=== PATIENT | male | born 2000 | race African-American/Black ===

== ENCOUNTER 2022-04-07 17:26 | Emergency (ER) | payer OTHER, SELFPAY ==
[2022-04-07 17:35] VITALS: BP 126/78; PULSE 78; RESP 20; TEMP 36.7; O2SAT 98
--- NOTE | 2022-04-07 17:38 | DI.US.S_ITS ---
PROCEDURE: US SCROTUM INDICATIONS: LEFT TESTICULAR PAIN X 1 WEEK TECHNIQUE: Real-time scanning was performed of the scrotum and testicles, with image documentation. Color and pulse Doppler interrogation was performed of both testicles. COMPARISON: None. FINDINGS: Right: Testicle is normal in size at 4.6 x 2.0 x 3.3 cm, and homogenous in echotexture. Epididymis is normal in overall size and morphology. No hydrocele or varicoceles. Overlying scrotal skin is normal in thickness. Left: Testicle is normal in size at 4.5 x 2.0 x 3.1 cm, and homogeneous in echotexture. Epididymis is normal in overall size and morphology. No hydrocele or varicoceles. Overlying scrotal skin is normal in thickness. Doppler: Color and pulse Doppler demonstrate normal and symmetric arterial flow in both testicles. IMPRESSION: Unremarkable exam. Dictated by: Kimberly Escalona M.D. on 04/07/2022 at 19:06 Approved by: Kimberly Escalona M.D. on 04/07/2022 at 19:06
[2022-04-07 18:03] LABS: Appearance Urine UA CLEAR; Bilirubin Urine UA NEGATIVE (NEGATIVE); Color Urine UA YELLOW; Glucose Urine UA NEGATIVE (Negative); Ketones Urine UA 1+ (NEGATIVE); Leukocyte Esterase Urine UA NEGATIVE (NEGATIVE); Nitrite Urine UA NEGATIVE (Negative); Occult Blood Urine UA NEGATIVE (Negative); Protein Urine UA NEGATIVE (Negative); Specific Gravity Urine UA <=1.005 (1.000-1.035); Urobilinogen Urine UA 0.2 E.U./dL (0.2)
[2022-04-07 18:16] LABS: Bacteria Urine None Seen; Culture Indicated Urine Cult Not Indicated; RBC Urine None Seen (0-5/HPF); Squamous Epithelial Cell Urine 0-1 /HPF (0-5/HPF); WBC Urine 0-1/HPF (0-5/HPF)
[2022-04-07 19:24] LABS: Urine N gonorrhoeae NOT DETECTED
[2022-04-07 19:40] LABS: Urine Chlamydia NOT DETECTED
[2022-04-07 20:07] VITALS: BP 122/74; PULSE 75; O2SAT 99
--- NOTE | 2022-04-07 20:08 | ED.MALEGU ---
HPI - Male Genitourinary <EZIO Jenkins - Last Filed: 04/07/22 20:17> General Chief complaint: Urogenital-Male Stated complaint: testicular pain Time Seen by Provider: 04/07/22 17:40 Source: patient Mode of arrival: Ambulatory History of Present Illness HPI Narrative: This is a 21-year-old male who presents To the emergency department for left testicle pain which has been present often on for approximately six months. Patient endorses painful ejaculation, intermittently painful urination,, tenderness behind his testicle in a rope like structure. Patient denies any fever, nausea vomiting, changes to his urination, states that he has had an ultrasound in the past for this and been tested for gonorrhea and chlamydia and it was all negative at that time for abnormality. Patient states that he is in the [place] and he is being discharged and out of the [place] tomorrow. Patient denies any penile discharge, denies any chills, denies any painful bowel movements or blood in his stool. Related Data Previous Rx's Medication Instructions Recorded doxycycline hyclate 100 mg tablet 100 mg PO BID 10 Days #20 tab 04/07/22 Review of Systems <EZIO Jenkins - Last Filed: 04/07/22 20:17> Review of Systems Narrative: General: denies fever, chills, malaise, sweats, fatigue Head/Neck: denies headache, neck pain, dizziness Eyes: denies visual changes, eye pain Cardio: denies chest pain, palpitations, edema Respiratory: denies dyspnea, cough, orthopnea GI: denies abdominal pain, nausea, vomiting, or diarrhea : denies dysuria, hematuria, urinary retention, frequency or incontinence, endorses pain posterior to his left testicle, states that his scrotum is swollen but only mildly MSK: denies joint pain, muscle weakness Skin: denies rash, itching, skin lesions or other Neuro: denies numbness, tingling Exam <EZIO Jenkins - Last Filed: 04/07/22 20:17> Narrative Exam Narrative: Independently reviewed vitals signs and nursing notes. General: cooperative, comfortable, in no acute distress, well groomed Head: atraumatic, symmetrical facial expressions Neck: supple Eyes: equal round and reactive, EOMI, conjunctiva normal Nose: nares patent, no rhinorrhea Mouth/Throat: moist mucus membranes Cardiovascular: regular rate and rhythm, no peripheral edema, warm extremities Respiratory: normal effort, able to speak in complete sentences, no audible wheezing, stridor, or rales. No retractions or tachypnea. GI: abdomen soft, nontender to palpation, nondistended, no masses, no exquisite tenderness with exam, without guarding or rebound. 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, left testicle with tenderness to the MSK: moves all extremities, neurovascularly intact, no weakness, normal tone Skin: brisk capillary refill, no rash, no erythema Neuro: normal speech and cognition, A&O x3 Psych: mental status is grossly normal, congruent mood, normal affect, pleasant and cooperative Initial Vital Signs Initial Vital Signs: Vital Signs Temperature 98.1 F 04/07/22 17:35 Pulse Rate 78 04/07/22 17:35 Respiratory Rate 20 04/07/22 17:35 Blood Pressure 126/78 04/07/22 17:35 Pulse Oximetry 98 04/07/22 17:35 Course <EZIO Jenkins - Last Filed: 04/07/22 20:17> Orders Ordered: ED Orders 04/07/22 17:38 US scrotum Stat 04/07/22 17:50 Chlamydia Gonorrhea PCR -URINE Stat UA Complete [Urinalysis and Microscopic] Stat Discontinued Medications Doxycycline Hyclate (Doxycycline Hyclate 100 Mg Tablet) 100 mg PO NOW ONE Stop: 04/07/22 20:07 Last Admin: 04/07/22 20:09 Dose: 100 mg Documented by: AMBROSE Vital Signs Vital signs: Vital Signs - 8 hr 04/07/22 17:35 04/07/22 20:07 Temperature 98.1 F Pulse Rate 78 75 Respiratory Rate 20 Blood Pressure 126/78 122/74 Pulse Oximetry 98 99 MDM - Male Genitourinary <EZIO Jenkins - Last Filed: 04/07/22 20:17> Lab Data Labs: Lab Results 04/07/22 04/07/22 Range/Units 17:50 17:50 Urine Color Yellow Urine Appearance Clear Urine pH 7.0 (4.5-8.0) Ur Specific [place] <=1.005 (1.000-1.035) Urine Protein Negative (Negative) Urine Glucose (UA) Negative (Negative) g/dL Urine Ketones 1+ H (NEGATIVE) Urine Occult Blood Negative (Negative) Urine Nitrate Negative (Negative) Urine Bilirubin Negative (NEGATIVE) Urine Urobilinogen 0.2 (0.2) E.U./dL Ur Leukocyte Esterase Negative (NEGATIVE) Urine RBC None seen (0-5/HPF) Urine WBC 0-1/hpf (0-5/HPF) Ur Squamous Epith Cells 0-1 /hpf (0-5/HPF) Urine Bacteria None seen (None) Ur Culture Indicated? 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 US SCROTUM ? INDICATIONS:? LEFT TESTICULAR PAIN X 1 WEEK ? TECHNIQUE:? Real-time scanning was performed of the scrotum and testicles, with image documentation.? Color and pulse Doppler interrogation was performed of both testicles.? ? COMPARISON:? None. ? FINDINGS:? ? Right:? Testicle is normal in size at 4.6 x 2.0 x 3.3 cm, and homogenous in echotexture.? Epididymis is normal in overall size and morphology.? No hydrocele or varicoceles.? Overlying scrotal skin is normal in thickness.? ? Left:? Testicle is normal in size at 4.5 x 2.0 x 3.1 cm, and homogeneous in echotexture.? Epididymis is normal in overall size and morphology.? No hydrocele or varicoceles.? Overlying scrotal skin is normal in thickness.? ? Doppler:? Color and pulse Doppler demonstrate normal and symmetric arterial flow in both testicles.? ? IMPRESSION:? Unremarkable exam. ? ? Dictated by: Kimberly Escalona M.D. on 04/07/2022 at 19:06 ? ? Approved by: Kimberly Escalona M.D. on 04/07/2022 at 19:06 ? MDM Narrative Medical decision making narrative: This is a 21-year-old male presents to the emergency department with left testicular pain often on for the last six months. Scrotum ultrasound was negative for acute abnormality without hydrocele, torsion, or heterogeneous echotexture. Vascularity was within normal limits of the epididymis bilaterally arterial flow was within normal limits bilaterally as well without abnormal finding. Urine gonorrhea and chlamydia was negative for gonorrhea and chlamydia. Patient has had these symptoms on and off for approximately six months, he does not have any associated lymphadenopathy, scrotum does not appear edematous, denies any penile discharge however patient endorses painful ejaculation, thick/mucoid semen and occasionally painful urination. Patient today was treated for urethritis with doxycycline times 10 days. He was given a phone number to follow up with Urology, he has [employer] insurance and will need approval to follow up, patient states understanding. Patient [place], and receive a referral for Urology, and to follow up accordingly. Patient understands to return to the emergency department for any new or worsening symptoms, he is able to void, UA was negative for a infectious finding, only positive was ketones. Differential also includes prostatitis. Patient does not have any wounds on exam or open sores. Could be another STI. Patient is appropriate and amenable to discharge home. Vital signs are stable on repeat examination is unremarkable. Patient has been informed of results. Patient has been given strict return to ER precautions for any new or worsening symptoms. Patient understands to follow up closely with outpatient providers as instructed. Patient understands plan and agrees to discharge home. All questions and concerns answered at this time. Discharge Plan Departure Patient Disposition: Home Clinical Impression: Left testicular pain, Urethritis Activity Restrictions/Additional Instructions: *You have been diagnosed with left testicle pain and pain in your left paradidymis, which is the cord that attaches to the epididymis. This may get better on this antibiotic, that is my hope anyway, I want you to follow-up with urology, having painful ejaculation and painful urination is not normal, and hopefully you can find out why this might be the case. We did not find anything dangerous or emergent on your workup today. Please do not fear losing a testicle or requiring surgery any time soon. That is why we do test like ultrasounds. Please call and see if you can make an appointment with Urology, call [facility] to see what they will allow you to do referral alvares, and when your out of the [place], please try to establish care with a primary care provider so that you can get a referral to Urology and follow-up with them about this. Please return to the emergency department for any new or worsening symptoms, I hope that you feel better soon. Take ibuprofen or Tylenol as needed, please stay hydrated with plenty water. *What to do: *Please continue to take your regular medications as directed. [ x] New medication prescriptions sent to your pharmacy: [[facility] ] [ ] New medication written as a paper prescription [ ] No new medications given *Please follow up with your primary care provider in 2-3 days, call for an appointment. Let them know you were seen in the Emergency Department and that we asked that you be seen for follow-up. We will electronically transmit a record of today's note if your PCP is in our system *If you do not have a primary care provider please contact [phone] to establish care with one of [facility] primary care providers. *Return to Emergency Department if you should have any new, worsening or concerning symptoms, such as [fever greater than 101F, chills, worsening pain, persistent vomiting or other bothersome symptoms] Prescriptions: New doxycycline hyclate 100 mg tablet 100 mg PO BID 10 Days Qty: 20 0RF Referrals: Vanessa Márquez MD [Physician] - Daniele Dominguez MD [Physician] -
[2022-04-07] MEDS: DOXYCYCLINE HYCLATE 100 MG TABLET PO (20:09)
== END 2022-04-07 20:12 | disposition home or self-care (01) ==
PROVIDERS: Emergency Provider Nurse Practitioner Critical Care Medicine
DX: N50.812 Left testicular pain (principal); N34.2 Other urethritis
CPT/HCPCS: 76870; 81001; 87491; 87591; 99283